=== PATIENT | female | born 1975 | race American Indian/Alaskan Native ===

== ENCOUNTER 2018-05-27 17:30 | Emergency (ER) | payer SELFPAY ==
[2018-05-27 17:39] VITALS: BP 140/102
--- NOTE | 2018-05-27 17:40 | Emergency Department Report ---
ED ENT HPI - General Chief complaint: Dental/Oral Stated complaint: TOOTHACHE Time Seen by Provider: 05/27/18 17:35 Source: patient Mode of arrival: Ambulatory Limitations: No Limitations - History of Present Illness Initial comments: This is a 42-year-old female nontoxic well-appearance with no signs of distress that presents with left side toothache. Patient stated had a root canal done last week. Patient stated was not prescribed any antibiotics. Denies any facial swelling. Denies any fever, chills, headache, nausea, vomiting, chest pain or shortness of breathe. Denies any allergies. MD complaint: tooth pain -: week(s) (1) Location: tooth # 1 - pain here Severity: mild Severity scale (0 -10): 8 Quality: aching Consistency: constant Improves with: none Worsens with: none Associated Symptoms: gum swelling, toothache. denies: fever, cough, pain with swallowing, sore throat, tinnitus, hearing loss, discharge from ear, rhinorrhea - Related Data Previous Rx's Medication Instructions Recorded Last Taken Type Acetaminophen/Codeine [Tylenol 1 tab PO Q6H PRN #12 tab 05/27/18 Unknown Rx /Codeine # 3 tab] Chlorhexidine Mouthwash [Peridex] 15 ml MM BID #1 bottle 05/27/18 Unknown Rx Clindamycin [Clindamycin CAP] 300 mg PO Q8H #21 cap 05/27/18 Unknown Rx Allergies Allergy/AdvReac Type Severity Reaction Status Date / Time No Known Allergies Allergy Unverified 05/27/18 17:32 ED Dental HPI - General Chief complaint: Dental/Oral Stated complaint: TOOTHACHE Time Seen by Provider: 05/27/18 17:35 Source: patient Mode of arrival: Ambulatory Limitations: No Limitations - Related Data Previous Rx's Medication Instructions Recorded Last Taken Type Acetaminophen/Codeine [Tylenol 1 tab PO Q6H PRN #12 tab 05/27/18 Unknown Rx /Codeine # 3 tab] Chlorhexidine Mouthwash [Peridex] 15 ml MM BID #1 bottle 05/27/18 Unknown Rx Clindamycin [Clindamycin CAP] 300 mg PO Q8H #21 cap 05/27/18 Unknown Rx Allergies Allergy/AdvReac Type Severity Reaction Status Date / Time No Known Allergies Allergy Unverified 05/27/18 17:32 ED Review of Systems ROS: Stated complaint: TOOTHACHE Other details as noted in HPI Constitutional: denies: chills, fever Eyes: denies: eye pain, eye discharge, vision change ENT: dental pain. denies: ear pain, throat pain Respiratory: denies: cough, shortness of breath, wheezing Cardiovascular: denies: chest pain, palpitations Endocrine: no symptoms reported Gastrointestinal: denies: abdominal pain, nausea, diarrhea Genitourinary: denies: urgency, dysuria, discharge Musculoskeletal: denies: back pain, joint swelling, arthralgia Skin: denies: rash, lesions Neurological: denies: headache, weakness, paresthesias Psychiatric: denies: anxiety, depression Hematological/Lymphatic: denies: easy bleeding, easy bruising ED Past Medical Hx - Past Medical History Previous Medical History?: No - Surgical History Past Surgical History?: No - Medications Home Medications: Home Medications Medication Instructions Recorded Confirmed Last Taken Type Acetaminophen/Codeine [Tylenol 1 tab PO Q6H PRN #12 tab 05/27/18 Unknown Rx /Codeine # 3 tab] Chlorhexidine Mouthwash [Peridex] 15 ml MM BID #1 bottle 05/27/18 Unknown Rx Clindamycin [Clindamycin CAP] 300 mg PO Q8H #21 cap 05/27/18 Unknown Rx ED Physical Exam - General Limitations: No Limitations General appearance: alert, in no apparent distress - Head Head exam: Present: atraumatic, normocephalic - Expanded ENT Exam Expanded Ear exam: Present: normal external inspection Mouth exam: Present: normal external inspection. Absent: drooling, trismus, muffled voice Teeth exam: Present: dental tenderness #, gingival enlargement, other (no facial swelling. no abscess.) Throat exam: Positive: tonsillar exudate. Negative: normal inspection, tonsillar erythema, tonsillomegaly, R peritonsillar mass, L peritonsillar mass - Neck Neck exam: Present: normal inspection, full ROM. Absent: tenderness, meningismus, lymphadenopathy ED Course Vital Signs 05/27/18 17:37 Temperature 98.4 F Pulse Rate 88 Respiratory 20 Rate Blood Pressure 140/102 O2 Sat by Pulse 100 Oximetry - Reevaluation(s) Reevaluation #1: 05/27/18 17:38 Patient is speaking in full sentences with no signs of distress noted. ED Medical Decision Making - Medical Decision Making At the time of discharge, patient understand to discharge instructions and agreed to the ED discharge plan of care. Critical care attestation.: If time is entered above; I have spent that time in minutes in the direct care of this critically ill patient, excluding procedure time. ED Disposition Clinical Impression: Toothache, Gingivitis Disposition: DC- TO HOME OR SELFCARE Is pt being admited?: No Does the pt Need Aspirin: No Condition: Stable Instructions: Gingivitis (ED), Acetaminophen/Codeine (By mouth) Additional Instructions: Follow-up with a primary care doctor in 3-5 days or if symptoms worsen and continue return to the emergency department as soon as possible. Do not operate any machinery while taking Tylenol with codeine due to dr ochoa. Prescriptions: Clindamycin [Clindamycin CAP] 300 mg PO Q8H #21 cap Chlorhexidine Mouthwash [Peridex] 15 ml MM BID #1 bottle Acetaminophen/Codeine [Tylenol /Codeine # 3 tab] 1 tab PO Q6H PRN #12 tab PRN Reason: Pain , Severe (7-10) Referrals: JENNIFER HURLEY MD [Staff Physician] - 3-5 Days [facility] [Outside] - 3-5 Days Forms: Work/School Release Form(ED)
== END 2018-05-27 17:55 | disposition home or self-care (01) ==
LOC: ED 17:30
DX: K05.10 Chronic gingivitis, plaque induced (principal)
CPT/HCPCS: 99282